=== PATIENT | male | born 1990 ===

== ENCOUNTER 2022-09-09 14:41 | Emergency (ER) | payer SELFPAY ==
[~2022-09-09] VITALS: Ht 167.6 cm; Wt 68.1 kg
[2022-09-09] MEDS ORDERED: LORazepam 2MG/ML-1ML VIAL IM ONE (15:15)
[2022-09-09 16:05] VITALS: BP 103/62
== END 2022-09-10 05:14 | disposition left against medical advice (07) ==
LOC: EDBD 14:41 → ER 14:41
DX: F19.10 Other psychoactive substance abuse, uncomplicated (principal)
CPT/HCPCS: 96372; 99283; J2060

== ENCOUNTER 2023-03-30 12:51 | Emergency (ER) | payer SELFPAY ==
[~2023-03-30] VITALS: Ht 175.3 cm; Wt 80.0 kg
[2023-03-30 13:03] VITALS: BP 169/79; PULSE 100; RESP 18; O2SAT 99
== END 2023-03-30 14:18 | disposition left against medical advice (07) ==
LOC: EDBD 12:51 → ER 13:02
DX: R06.02 Shortness of breath (principal); Z53.21 Procedure and treatment not carried out due to patient leaving prior to being seen by health care provider